=== PATIENT | male | born 1990 | race Two or more races ===

== ENCOUNTER 2021-10-04 20:12 | Emergency (ER) | payer MEDICAID ==
[~2021-10-04] VITALS: Ht 170.2 cm; Wt 68.0 kg
[2021-10-04] MEDS ORDERED: LIDOCAINE 5% TRANSDERMAL PATCH TD ONE (21:00)
[2021-10-04] MEDS ORDERED: DIAZEPAM 5 MG TABLET PO ONE (21:00)
[2021-10-04] MEDS ORDERED: ACETAMINOPHEN 500 MG TABLET PO ONE (21:00)
[2021-10-04] MEDS ORDERED: KETOROLAC TROMETHAMINE 30 MG/ML VIAL IM ONE (21:00)
[2021-10-04] MEDS ORDERED: LIDO700A15 TP (22:02)
[2021-10-04 22:30] VITALS: BP 119/68
== END 2021-10-05 01:00 | disposition home or self-care (01) ==
LOC: EMS 20:17
DX: M62.838 Other muscle spasm (principal); M54.2 Cervicalgia
CPT/HCPCS: 96372; 99284; J1885